=== PATIENT | male | born 1945 | race African-American/Black ===

== ENCOUNTER 2023-03-04 15:03 | Emergency (ER) | payer OTHER, MEDICARE ==
[~2023-03-04] VITALS: Ht 180.3 cm; Wt 95.2 kg
[2023-03-04] VITALS (8 sets, daily range): BP systolic 113–158; BP diastolic 76–93
[2023-03-04 15:47] LABS: URINE BILIRUBIN - DIPSTICK NEGATIVE (NEGATIVE); URINE BLOOD DIPSTICK NEGATIVE (NEGATIVE); URINE COLOR YELLOW; URINE GLUCOSE - DIPSTICK NEGATIVE (NEGATIVE); URINE KETONE NEGATIVE (NEGATIVE); URINE LEUK ESTERASE NEGATIVE (NEGATIVE); URINE PH 5.5 (4.5-8.0); URINE PROTEIN - DIPSTICK TRACE mg/dL (NEG-TRACE); URINE SPECIFIC GRAVITY 1.025; URINE UROBILINOGEN - DIPSTICK 0.2 E.U./dL (0.2)
[2023-03-04 15:48] LABS: URINE NITRITE - DIPSTICK NEGATIVE (Negative)
[2023-03-04 16:05] LABS: BASO% 0.5 % (0-3); EOS% 2.5 % (0-8); HEMATOCRIT 43.7 % (39.0-50.0); HEMOGLOBIN 13.4 g/dl (14.0-18.0); IMMATURE GRANULOCYTES 0.2 % (0.0-5.0); LYMPH% 27.7 % (15-41); MEAN CELL VOLUME 93.4 fL CALC (80.0-100.0); MEAN CORPUSCULAR HGB 28.6 pG CALC (26.0-32.0); MEAN CORPUSCULAR HGB CONC 30.7 g/dL CAL (32.0-36.0); NEUT# 3.55 thou/uL (1.82-7.42); NEUT% 59.1 % (42-76); RED BLOOD COUNT 4.68 mill/uL (4.70-6.10); RED CELL DISTRI WIDTH 14.6 % (11.5-15.5)
[2023-03-04 16:16] LABS: ALBUMIN 4.3 g/dL (3.2-5.0); BILIRUBIN, TOTAL 0.7 mg/dL (0.2-1.3); CREATININE 1.6 mg/dL (0.7-1.3); POTASSIUM 4.3 mmol/l (3.5-5.1); TOTAL PROTEIN 7.7 g/dL (6.3-8.2)
[2023-03-04] MEDS ORDERED: SYNTHROID175 MCG PO (16:19)
[2023-03-04] MEDS ORDERED: AMLODIPINE BESY10 MG PO (16:20)
[2023-03-04] MEDS ORDERED: COLCHICINE0.6 M2 (16:22)
[2023-03-04] MEDS ORDERED: BUPRENORPHIN2 MG SL (16:23)
[2023-03-04] MEDS ORDERED: TRAMADOL HYDROC50 M1 PO (18:31)
== END 2023-03-04 19:02 | disposition home or self-care (01) | DRG 392 ==
LOC: ED 15:03
PROVIDERS: Family Medicine
DX: R10.31 Right lower quadrant pain (principal); I10 Essential (primary) hypertension; I71.43 Infrarenal abdominal aortic aneurysm, without rupture; I72.3 Aneurysm of iliac artery
CPT/HCPCS: Q9967